=== PATIENT | female | born 1950 | race Caucasian/White ===

== ENCOUNTER → 2024-07-31 | Outpatient (CLI) | payer MEDICARE, SELFPAY ==
[2024-07-31 12:24] LABS: Absolute Lymphocyte Count 1.55 X10^3/uL (0.83-4.51); Absolute Neutrophil Count 1.6 X10^3/uL (2.0-7.7); Basophil# 0.03 X10^3/uL; Basophil% 0.8 % (0-1); Eosinophil# 0.39 X10^3/uL; Hematocrit 41.7 % (37-47); Hemoglobin 13.5 g/dL (12.0-15.0); Lymphocyte # 1.55 X10^3/ul (0.83-4.51); Lymphocyte % 39.6 % (19-41); Mean Corp Hgb Conc 32.4 g/dL (32-36); Mean Corpuscular Hgb 30.5 pg (27.0-32.0); Mean Corpuscular Volume 94.3 fL (81-99); Mean Platelet Vol. 10.9 fl (6.2-12.0); Monocyte# 0.31 X10^3/uL; Monocyte% 7.9 % (0-10); NRBC Flagged by Analyzer 0 % (0-5); Neutrophil # 1.62 X10^3/uL (2.7-7.7); Neutrophil % 41.4 % (47-70); Platelet Count 273 K/mm3 (150-450); RBC Distribution Width CV 12.8 % (11.6-14.6); RBC Distribution Width SD 44.4 fl (35.1-43.9); Red Blood Count 4.42 M/mm3 (4.2-5.4); White Blood Count 3.9 K/mm3 (4.4-11.0)
[2024-07-31 13:55] LABS: ALB/GLOB Ratio 1.6 RATIO (0.9-2.4); AST(SGOT) 29 U/L (<=31); Alanine Aminotransfer ALT/SGPT 26 U/L (<=34); Albumin, Serum 4.1 g/dL (3.4-4.8); Alkaline Phosphatase 51 U/L (35-104); Anion Gap 10 (5-15); BUN 16 mg/dL (4-19); BUN/Creat Ratio 23.2 RATIO (10-20); Calcium,Total 9.3 mg/dL (7.6-11.0); Carbon Dioxide 26.8 mmol/L (21.0-32.0); Chloride 104 mmol/L (98-108); Cholesterol 173 mg/dL (<=200); Creatinine, Serum 0.67 mg/dL (0.70-1.20); EST Glomerular Filtration Rate 93 (>60); Globulin 2.5 g/dL (2.2-4.2); Glucose 86 mg/dL (70-99); High Density Lipoprotein 58 mg/dL; Low Density Lipoprotein Calc. 97 mg/dL; Protein, Total 6.6 g/dL (5.9-8.4); Sodium Level 141 mmol/L (133-145); Total Bilirubin 0.37 mg/dL (0.00-1.30); Triglycerides 94 mg/dL; Very Low Density Lipoprotein 19 mg/dL (5-40)
[2024-07-31 14:02] LABS: Vitamin D,25 Hydroxy 58.5 ng/mL (30-100)
== END | disposition home or self-care (01) ==
LOC: MTLAB 08:46
DX: F41.1 Generalized anxiety disorder (principal); M81.0 Age-related osteoporosis without current pathological fracture; E55.9 Vitamin D deficiency, unspecified; E06.3 Autoimmune thyroiditis; E04.2 Nontoxic multinodular goiter; I10 Essential (primary) hypertension; E78.5 Hyperlipidemia, unspecified; K21.9 Gastro-esophageal reflux disease without esophagitis
CPT/HCPCS: 36415; 80053; 80061; 82306; 84439; 84443; 85025

== ENCOUNTER → 2024-11-07 | Outpatient (CLI) | payer MEDICARE, SELFPAY ==
[2024-11-07 18:09] LABS: Ferritin 23 ng/mL (22-378); Vitamin B12 1000 pg/mL (180-914); Vitamin D,25 Hydroxy 50.7 ng/mL (30-100)
[2024-11-13 18:08] LABS: Vitamin A, Retinol 54.7 ug/dL (22.0-69.5); Vitamin B1, Thiamine 119.6 nmol/L (66.5-200.0); Zinc, Plasma or Serum 48 ug/dL (44-115)
== END | disposition home or self-care (01) ==
LOC: MTLAB 12:40
PROVIDERS: Referring Provider Internal Medicine Endocrinology, Diabetes & Metabolism; Visit Provider Internal Medicine Endocrinology, Diabetes & Metabolism
DX: E55.9 Vitamin D deficiency, unspecified (principal); E03.9 Hypothyroidism, unspecified; E06.3 Autoimmune thyroiditis; K90.9 Intestinal malabsorption, unspecified; M85.80 Other specified disorders of bone density and structure, unspecified site; E61.1 Iron deficiency
CPT/HCPCS: 36415; 82306; 82607; 82728; 84425; 84443; 84590; 84630

== ENCOUNTER 2025-01-02 14:24 | Outpatient (CLI) | payer MEDICARE, SELFPAY ==
[2025-01-02 14:35] VITALS: BP 154/70; PULSE 71; RESP 16; TEMP 36.3
[2025-01-02] MEDS: 0.9% NaCl Peripheral Flush Adult IV (14:48)
[2025-01-02] MEDS: 0.9% NaCl IVPB Med Flush (100mL) 15 ML IV (14:52)
[2025-01-02 15:31] VITALS: BP 140/68; PULSE 63; RESP 16
== END 2025-01-02 23:59 | disposition home or self-care (01) ==
LOC: MEDOUTP 14:25
PROVIDERS: PCP Family Medicine; Referring Provider Internal Medicine Endocrinology, Diabetes & Metabolism; Visit Provider Internal Medicine Endocrinology, Diabetes & Metabolism
DX: M85.80 Other specified disorders of bone density and structure, unspecified site (principal); K90.9 Intestinal malabsorption, unspecified
CPT/HCPCS: 96365; A4216; J3489